=== PATIENT | female | born 1985 | race Caucasian/White ===

== ENCOUNTER 2019-03-24 11:18 | Emergency (ER) | payer SELFPAY ==
--- NOTE | 2019-03-24 12:05 | CT ---
CT Brain WO Con: 03/24/2019 11:46 AM CLINICAL HISTORY: Injury. COMPARISON: None. FINDINGS: Hemorrhage: None. Ventricular system: Normal in size and morphology for the patient's age. Cerebral parenchyma: Normal Midline shift: None. Mass: No mass effect. Calvarium: Normal. Visualized Paranasal sinuses: Clear. IMPRESSION: No acute intracranial abnormalities.
--- NOTE | 2019-03-24 12:14 | CT ---
CT Cervical Spine WO Con History: Injury. Comparison: None. Findings: The occipital condyles are intact. The odontoid process is intact. No acute fracture or mal alignment of the cervical spine. Spinous processes are intact. No acute traumatic facet joint widening. No transverse process fracture . Lung apices are clear. Thyroid is unremarkable as well as the paraspinal soft tissues. Impression: No acute fracture or malalignment of the cervical spine.
--- NOTE | 2019-03-24 12:17 | CT ---
CT Facial Bones WO Con History: Injury. Comparison: None. Findings: Normal alignment of the temporomandibular joints. High-grade band is intact. Soft tissue co ntusion under the chin. Mandible is intact. No displaced teeth. The zygoma, zygomatic arches, pterygoid plates, maxilla, nasal bones are intact. Osseous nasal septum is intact. Medial orbital dominguez, lateral orbital dominguez, orbital roofs, orbital floors are intact. The paranasal sinuses and mastoids are clear. Impression: Soft tissue contusion of the right chin without underlying fracture of the face.
[2019-03-24] MEDS ORDERED: Acetaminophen 500 MG TAB ONE (13:54)
[2019-03-24] MEDS ORDERED: Ketorolac Tromethamine 30 MG/ML VIAL ONE (13:54)
[2019-03-24] MEDS ORDERED: Adacel (T-DAP) 0.5 ML SYRINGE ONE (13:54)
[2019-03-24] MEDS ORDERED: Ondansetron ODT 4 MG TAB ONE (13:54)
== END 2019-03-24 14:20 | disposition home or self-care (01) ==
LOC: ERS 11:18
DX: S00.81XA Abrasion of other part of head, initial encounter (principal); F32.9 Major depressive disorder, single episode, unspecified; W01.198A Fall on same level from slipping, tripping and stumbling with subsequent striking against other object, initial encounter
CPT/HCPCS: 70450; 70486; 72125; 90471; 90715; 96372; J1885; Q0162